=== PATIENT | female | born 1980 | race Caucasian/White ===

== ENCOUNTER → 2025-05-05 10:17 | Outpatient (REF) | payer OTHER, SELFPAY | LOC: WDC 10:17 | PROVIDERS: ATTENDING PHYSICIAN Student in an Organized Health Care Education/Training Program; FAMILY PHYSICIAN Family Medicine | DX: R92.8 Other abnormal and inconclusive findings on diagnostic imaging of breast (principal) | CPT/HCPCS: 77065 ==